=== PATIENT | female | born 1945 | race Hispanic/Latino ===

== ENCOUNTER 2018-10-31 10:50 | Emergency (ER) | payer MEDICARE, MEDICAID ==
[2018-10-31] MEDS ORDERED: CEFAZOLIN 1 GM VIAL ONE (11:05)
[2018-10-31] MEDS ORDERED: Adacel (T-DAP) 0.5 ML SYRINGE ONE (11:05)
[2018-10-31] MEDS ORDERED: Ondansetron PF 4 MG/2 ML Vial ONE (11:05)
[2018-10-31] MEDS ORDERED: Fentanyl 100 MCG/2 ML VIAL ONE (11:14)
--- NOTE | 2018-10-31 11:33 | RAD ---
PORTABLE CHEST 1 VIEW: Date: 10/31/18 Time: 1123 hours HISTORY: Fall. No loss of consciousness. FINDINGS/IMPRESSION: Comparison made with exam of 09/29/16. The heart is enlarged. No lobar consolidation, pneumothoraces, priti pulmonary edema, or large effusi ons are seen. There is mild prominence of the pulmonary vascularity. POS: [facility]
[2018-10-31 11:45] LABS: #Eosinphils 0.4 thou/uL (0.0-0.7); #Lymphocytes 2.1 thou/uL (1.20-3.40); #Monocytes 0.5 thou/uL (0.11-0.59); #Neutrophils 6.6 thou/uL (1.40-6.50); %Basophils 0.5 % (0.0-1.0); %Eosinophils 3.9 % (0.0-10.0); %Monocytes 5.4 % (0.0-10.0); %Neutrophils 68.3 % (42.0-75.0); Hemoglobin 13.8 g/dL (12.0-16.0); Mean Corpuscular HGB CONC 32.3 g/dL (32.0-36.0); Mean Corpuscular Hemoglobin 30.3 pg (27.0-31.0); Mean Corpuscular Volume 93.7 fL (78.0-98.0); Mean Platelet Volume 8.1 fL (7.4-10.4); Platelet Count 205 thou/uL (130-400); RBC Distribution Width 13.5 % (11.5-14.5); Red Blood Cell (RBC) Count 4.56 mill/uL (4.20-5.40); White Blood Cell (WBC) Count 9.7 thou/uL (4.8-10.8)
[2018-10-31 11:51] LABS: PTT 32.5 SEC (22.9-36.1); Prothrombin Time 13.5 SEC (12.0-14.7)
[2018-10-31] MEDS ORDERED: Lidocaine 1% (PF) 30 ML VIAL ONE (11:58)
[2018-10-31 12:12] LABS: ALT (SGPT) 19 U/L (8-55); AST (SGOT) 29 U/L (5-34); Albumin 3.7 g/dL (3.4-4.8); Alkaline Phosphatase 144 U/L (40-150); Anion Gap 14 mmol/L (10-20); BUN (Urea Nitrogen) 18 mg/dL (9.8-20.1); Bilirubin, Total 0.5 mg/dL (0.2-1.2); Calc. Creatinine Clearance 0 mL/min (70-130); Calcium 9.3 mg/dL (7.8-10.44); Carbon Dioxide 24 mmol/L (23-31); Chloride 105 mmol/L (98-107); Estimated GFR-MDRD 75; Globulin 4.3 g/dL (2.4-3.5); Glucose 139 mg/dL (83-110); Potassium 3.9 mmol/L (3.5-5.1); Sodium 139 mmol/L (136-145)
--- NOTE | 2018-10-31 13:55 | RAD ---
RADIOGRAPH LEFT KNEE 4 VIEWS: Date: 10/31/18 Time: 1148 hours HISTORY: 73-year-old female status post acute traumatic injury to knee from fall. FINDINGS: Severe osteopenia. Knee is flexed on all views, including AP view. High grade joint space narrowing a nd high grade osteophytosis at all 3 compartments. Probable joint effusion. No grossly displaced frac ture identified. No dislocation. IMPRESSION: 1. Although no fracture is identified, a mildly displaced or nondisplaced fracture could be obscured by the osteopenia and high grade osteoarthrosis. 2. If patient's symptoms do not improve in the next few days, follow-up 4 view radiograph of left kn ee is recommended. POS: [facility]
--- NOTE | 2018-10-31 14:25 | RAD ---
LEFT HIP 2 VIEWS: Date: 10/31/18 HISTORY: Injury from a fall from standing with left knee pain. FINDINGS: Arthrosis and degenerative changes of the left hip. Prominent vascular calcifications. No acute fract ure or dislocation. IMPRESSION: Bone demineralization with degenerative and osteoarthrosis changes without acute fracture or dislocat ion. POS: [facility]
--- NOTE | 2018-10-31 14:27 | RAD ---
LEFT TIBIA AND FIBULA 2 VIEWS: Date: 10/31/18 HISTORY: Injury from a fall from standing with left knee pain. FINDINGS: Marked arthrosis of the knee joint and ankle joint. Bony demineralization. Prominent vascular calcifi cation. No acute fracture or dislocation. IMPRESSION: Bony demineralization with arthrosis and degenerative changes of the knee joint and ankle joint. No a cute fracture or dislocation. POS: [facility]
[2018-10-31 14:55] LABS: Hemoglobin A1c 6.2 % (4.0-6.0)
--- NOTE | 2018-10-31 15:40 | CT ---
CT LEFT KNEE NONCONTRAST: 10/31/18 HISTORY: Fall. Knee injury. FINDINGS: Tricompartmental joint space narrowing and bulky osteophytosis. Articular surface irregularity involv es primarily the medial femoral condyle. Small amount of fluid distends the suprapatellar bursa. No a cute fracture or dislocation. Prominent calcifications throughout the arterial structures. IMPRESSION: No acute osseous abnormalities are demonstrated. Severe osteoarthritic changes with joint effusion. Atherosclerosis. POS: [facility]
[2018-10-31 16:17] LABS: Bilirubin Negative (Negative); Blood, Urine Moderate (Negative); Glucose, Urine (Dipstick) Negative (Negative); Leukocyte Large (Negative); Nitrite Positive (Negative); Protein, Urine (Dipstick) 30 mg/dL (Neg-Trace)
[2018-10-31 16:24] LABS: Clarity Cloudy (Clear)
[2018-10-31 16:33] LABS: Bacteria/HPF 4+ HPF (None Seen); Squamous Epithelial 0-3 HPF (0-3); Transitional Epithelial 0-3 HPF (None Seen); WBC/HPF Greater Than 50 HPF (0-3)
--- NOTE | 2018-11-02 15:22 | EKG ---
Test Reason : Blood Pressure : / mmHG Vent. Rate : 057 BPM Atrial Rate : 057 BPM P-R Int : 222 ms QRS Dur : 094 ms QT Int : 424 ms P-R-T Axes : 035 062 099 degrees QTc Int : 412 ms Sinus bradycardia with 1st degree A-V block Inferior infarct , age undetermined Possible Anterior infarct , age undetermined Abnormal ECG Confirmed by DALE CHANG DO ([id number]), make up editor DIPTI AGUAYO ([id number] on 11/02/2018 3:21:50 PM Referred By: Confirmed By:DALE CHANG DO
== END 2018-10-31 18:25 | disposition home or self-care (01) ==
LOC: ERS 10:50
DX: S91.115A Laceration without foreign body of left lesser toe(s) without damage to nail, initial encounter (principal); M25.562 Pain in left knee; E11.9 Type 2 diabetes mellitus without complications; E03.9 Hypothyroidism, unspecified; I10 Essential (primary) hypertension; Z23 Encounter for immunization; W18.30XA Fall on same level, unspecified, initial encounter
CPT/HCPCS: 12001; 36415; 51701; 71045; 80053; 81003; 81015; 83036; 84443; 85025; 85610; 85730; 86850; 86900; 86901; 90471; 90715; 93005; 96365; 96375; A4353; J0690; J2001; J2405; J3010